=== PATIENT | female | born 1985 | race Caucasian/White ===

== ENCOUNTER 2020-08-01 09:00 | Emergency (ER) | payer BC, SELFPAY ==
[~2020-08-01] VITALS: Ht 152.4 cm; Wt 72.6 kg
[2020-08-01 09:01] VITALS: BP 136/75; Ht 152.4 cm; Wt 72.6 kg
== END 2020-08-01 10:30 | disposition home or self-care (01) ==
LOC: ED 09:00
DX: U07.1 COVID-19 (principal)
CPT/HCPCS: U0003